=== PATIENT | male | born 1935 | race Caucasian/White ===

== ENCOUNTER 2018-02-10 09:50 | Observation (INO) | payer OTHER ==
[2018-02-10] MEDS ORDERED: NS 500 ML IV ONE (09:58)
[2018-02-10] MEDS ORDERED: ASPIRIN 81 MG CHEWABLE TAB PO ONE (09:58)
--- NOTE | 2018-02-10 10:06 | CPEKG ---
Heart Rate: 57 RR Interval: 1053 P-R Interval: 204 QRSD Interval: 82 QT Interval: 424 QTC Interval: 413 P [place]: 76 QRS [place]: -47 T Wave [place]: 87 EKG Severity - ABNORMAL ECG - EKG Impression: SINUS RHYTHM EKG Impression: LEFT ANTERIOR FASCICULAR BLOCK EKG Impression: BORDERLINE T ABNORMALITIES, ANT-LAT LEADS Electronically Signed By: Therese Emanuel 10-Feb-2018 14:52:47
[2018-02-10 10:23] LABS: PLATELET COUNT 225 10^3/uL (150-400)
[2018-02-10 10:32] LABS: CREATINE KINASE 32 IU/L (0-224)
[2018-02-10 10:34] LABS: INR 1.04 (0.83-1.16); PROTIME(PATIENT) 13.8 SEC (12.0-15.0)
--- NOTE | 2018-02-10 10:44 | EDPHY ---
H & P Time Seen by Provider: 02/10/18 09:59 HPI/ROS: HPI Chest pain. 82-year-old male by ambulance from home. This patient reports that he woke up at 7:00 a.m. With what he describes as lower mid substernal chest pain with radiation to the right side of his chest. He reports that it worsened through the morning. He does have a history of pericarditis but states that this pain was different from his previous episodes of pericarditis. He describes the pain as dull and aching and constant. No associated shortness of breath. At this time he states that his chest pain has resolved and he denies any discomfort. Denies any previous history of coronary artery disease. ROS: Constitutional: No fever, no chills. No weakness. Eyes: No discharge. No changes in vision. ENT: No sore throat. No nasal congestion or rhinorrhea. Respiratory: No cough. No shortness of breath. Cardiac: As above, no palpitations. Gastrointestinal: No abdominal pain, no vomiting, no diarrhea. Genitourinary: No hematuria. No dysuria or increased frequency with urination. Musculoskeletal: No back pain. No neck pain. No myalgias or arthralgias. Skin: No rashes. Neurological: No headache. No focal weakness or altered sensation. Past medical history: Recent fracture of right shoulder and proximal humerus currently in a sling for this. Pericarditis, amnesia, hypothyroidism, prostatic hypertrophy. Social history: Nonsmoker. Here by himself. Denies alcohol. Physical Exam: General Appearance: Alert, no distress. This patient is responding to questions appropriately and in full sentences. This patient appears well- hydrated and well-nourished. Eyes: Pupils equal and round no pallor or injection. No lid edema, erythema or injection. Respiratory: There are no retractions, lungs are clear to auscultation with good air movement bilaterally. Cardiovascular: Regular rate and rhythm. No murmur. Gastrointestinal: Abdomen is soft and nontender, no masses, bowel sounds normal. No focal tenderness at McBurney's point. No Mendoza sign. Neurological: Motor sensory function is grossly intact. Cranial nerves are normal. Gait is normal. Skin: Warm and dry, no rashes. Musculoskeletal: Neck is supple and nontender. Extremities are symmetrical except noted right upper extremity in sling and swath. All joints range without pain or impingement except right shoulder.. Psychiatric: No agitation. No depression. Database: EKG: EKG time is 9:50 a.m.; EKG shows a narrow complex normal sinus rhythm with a ventricular rate of 57. Left anterior fascicular block noted. The VT, QRS, QT intervals are within normal limits. T-wave flattening noted in the anterior precordial leads. Otherwise, there are no ST-T wave changes indicative of ischemic or injury pattern. No evidence of right heart strain. Interpreted by me. Imaging: Chest x-ray AP portable; the cardiac mediastinal silhouette is unremarkable. No evidence of infiltrate or pneumothorax. Chronic airway disease, chronic granulomatous disease. No acute cardiopulmonary disease process noted. Interpreted by me. Procedures: Emergency department course: IV placed. Patient placed on a monitor. Vital signs reviewed and are unremarkable. Patient given 324 mg of chewed aspirin. 10:45 a.m., the patient remains chest pain-free. Results of diagnostic workup and plan for admission to the hospitalist service discussed. He endorses. 10:50 a.m., spoke with hospitalist. Case discussed in detail. Patient accepted for admission to telemetry observation. Patient admitted in stable condition to the hospitalist service. Differential Diagnosis: The differential diagnosis on this patient includes but is not limited to acute coronary syndrome, myocardial infarction, esophageal spasm. Pericarditis, myocarditis, pulmonary embolism, aortic dissection unlikely. This represents a partial list of diagnoses considered. These considerations are based on history , physical exam, past history, reassessment and diagnostic testing. Smoking Status: Former smoker Constitutional: Initial Vital Signs Temperature (C) 36.5 C 02/10/18 10:03 Heart Rate 61 02/10/18 10:03 Respiratory Rate 18 02/10/18 10:03 Blood Pressure 133/71 H 02/10/18 10:03 O2 Sat (%) 94 02/10/18 10:03 O2 Delivery Mode Room Air O2 (L/minute) 2 Allergies/Adverse Reactions: amoxicillin trihydrate [From Augmentin] Allergy (Mild, Verified 06/18/11 10:01) GI upset ciprofloxacin HCl [From Cipro] Allergy (Mild, Verified 06/18/11 10:01) achiness potassium clavula *RETIRED-06/23/12 [From Augmentin] Allergy (Mild, Verified 02/21 10:01) GI upset Home Medications: Medication Instructions Recorded Tamsulosin HCl [Flomax] 0.4 mg PO DAILY 06/18/11 Synthroid 05/18/15 Medical Decision Making - Diagnostics Imaging Results: Imaging Impressions Chest X-Ray 02/10/18 09:59 Impression: 1. No acute pulmonary disease. 2. Chronic obstructive airways disease. 3. Chronic granulomatous nodules. - Data Points Laboratory Results: Laboratory Results 02/10/18 10:15 02/10/18 10:15 02/10/18 02/10/18 02/10/18 10:15 10:15 10:15 WBC 6.15 10^3/uL 10^3/uL (3.80-9.50) RBC 4.71 10^6/uL 10^6/uL (4.40-6.38) Hgb 14.2 g/dL g/dL (13.7-17.5) Hct 42.4 % % (40.0-51.0) MCV 90.0 fL fL (81.5-99.8) MCH 30.1 pg pg (27.9-34.1) MCHC 33.5 g/dL g/dL (32.4-36.7) RDW 14.2 % % (11.5-15.2) Plt Count 225 10^3/uL 10^3/uL (150-400) MPV 8.9 fL fL (8.7-11.7) Neut % (Auto) 68.5 % % (39.3-74.2) Lymph % (Auto) 12.7 % L % (15.0-45.0) Meagher % (Auto) 7.6 % % (4.5-13.0) Eos % (Auto) 10.4 % H % (0.6-7.6) Baso % (Auto) 0.5 % % (0.3-1.7) Nucleat RBC Rel Count 0.0 % % (0.0-0.2) Absolute Neuts (auto) 4.21 10^3/uL 10^3/uL (1.70-6.50) Absolute Lymphs (auto) 0.78 10^3/uL L 10^3/uL (1.00-3.00) Absolute Monos (auto) 0.47 10^3/uL 10^3/uL (0.30-0.80) Absolute Eos (auto) 0.64 10^3/uL H 10^3/uL (0.03-0.40) Absolute Basos (auto) 0.03 10^3/uL 10^3/uL (0.02-0.10) Absolute Nucleated RBC 0.00 10^3/uL 10^3/uL (0-0.01) Immature Gran % 0.3 % % (0.0-1.1) Immature Gran # 0.02 10^3/uL 10^3/uL (0.00-0.10) PT 13.8 SEC SEC (12.0-15.0) INR 1.04 (0.83-1.16) APTT 26.4 SEC SEC (23.0-38.0) Sodium 139 mEq/L mEq/L (135-145) Potassium Pending Chloride 107 mEq/L mEq/L (97-110) Carbon Dioxide 24 mEq/l mEq/l (22-31) Anion Gap Pending BUN 24 mg/dL H mg/dL (7-23) Creatinine 1.2 mg/dL mg/dL (0.7-1.3) Estimated GFR 58 Glucose 99 mg/dL mg/dL (70-100) Calcium 8.3 mg/dL L mg/dL (8.5-10.4) Creatine Kinase 32 IU/L IU/L (0-224) CK-MB (CK-2) Fraction 1.30 ng/mL ng/mL (0.00-3.19) Troponin I < 0.012 ng/mL ng/mL (0.000-0.034) Medications Given: Discontinued Medications Aspirin (Aspirin) 324 mg PO EDNOW ONE Stop: 02/10/18 09:59 Last Admin: 02/10/18 10:03 Dose: Not Given Sodium Chloride (Ns) 500 mls @ 1,000 mls/hr IV EDNOW ONE PRN Reason: Protocol Stop: 02/10/18 10:27 Last Admin: 02/10/18 10:11 Dose: 500 mls Departure - Departure Disposition: [facility] In[facility] Acute Clinical Impression: Chest pain Referrals: BLAIR MEJÍA [Primary Care Provider] - As per Instructions
[2018-02-10] MEDS ORDERED: ONDANSETRON 4 MG/2 ML VIAL IVP PRN (10:59)
[2018-02-10] MEDS ORDERED: ACETAMINOPHEN 325 MG TAB PO PRN (10:59)
[2018-02-10] MEDS ORDERED: ONDANSETRON DISINTEGRATING 4 MG TAB PO PRN (10:59)
--- NOTE | 2018-02-10 15:57 | GHP ---
[f rep st] HISTORY AND PHYSICAL DATE OF ADMISSION: 02/10/2018 CHIEF COMPLAINT: Substernal chest pressure. HISTORY OF PRESENT ILLNESS: An 82-year-old male who reports awaking the morning of presentation seco ndary to substernal chest pressure. Patient reports being in his normal state of health the evening prior to presentation, tolerating normal p.o. and falling asleep without complication. Patient repor ts being woken by substernal chest pressure that he described 8/10 at initiation. Patient sat up, wa s trying better to get himself comfortable with the pain when he noted the pain began radiating to th e right side of his chest. He denied any associated diaphoresis, any lightheadedness, any nausea or vomiting. He did feel short of breath with the pain. Patient called the EMS, was given baby aspirin in the field, and did have resolution of the pain while in transit to [facility]. Nilam martin denies any preceding episodes of chest pain similar to this. He has had 2 episodes of pericar ditis in the past that he describes as feeling different than this sensation he had this morning. Luis mcconnell is quite active. At times, will hike up to 6 miles a day without any difficulty either with sh ortness of breath or chest discomfort. Patient did recently fall breaking both his humerus and his l ower arm. He is status post casting and is now splinted. Does not report any new increase in activi ty to the right upper extremity in the past several days. PAST MEDICAL HISTORY: 1. BPH. 2. Hypothyroidism. 3. Rheumatoid arthritis. SOCIAL HISTORY: Patient smoked for a short period of time, quit over 20 years ago. Alcohol occasion al. No illicit drugs or marijuana. FAMILY HISTORY: Negative for heart disease. REVIEW OF SYSTEMS: A 10-point review of systems is negative with the exception of that reported in t he HPI. PHYSICAL EXAMINATION: VITAL SIGNS: Blood pressure 132/77, heart rate 61, respiratory rate 18, 93% o n room air, 36.4. GENERAL: This is a very healthy-appearing elderly male in no acute distress. CRIS NT: Notable for moist mucous membranes. Eye exam is negative for any icterus. CARDIAC: Patient is regular rate and rhythm. A quiet systolic murmur is appreciated at the left upper sternal border. PULMONARY: He is clear to auscultation bilaterally. GASTROINTESTINAL: Positive bowel sounds. Abdom en soft and nontender. MUSCULOSKELETAL: Negative for any lower extremity edema. SKIN: Negative for any rashes. NEUROLOGIC: He is alert and oriented x3. PSYCHIATRIC: He is pleasant and cooperative o n interview and examination. DATA: White count 6.1, hematocrit 42.4, platelets of 225. Creatinine 1.2, BUN 24. Troponin less th an 0.012. Chest x-ray, which I personally reviewed and interpreted, shows no acute infiltrates or edema. EKG, which I personally reviewed and interpreted, shows sinus rhythm, leftward axis deviation, normal intervals with no acute ST-T changes. ASSESSMENT AND PLAN: This is an 82-year-old male presenting with sudden onset chest pressure. 1. Acute chest pain. Patient is quite active with no significant risk factors for heart disease. R eassured by his description of the pain, as well as his first objective data. Will admit the patient for serial troponin and EKG, as well as telemetry monitoring on the progressive care unit. If patie nt rules out overnight, would preferentially like to perform a graded treadmill stress test. Will ne ed to investigate whether he can do so with his right arm in a sling. 2. Hypothyroidism. Will continue patient's Synthroid therapy per his home dosing. 3. BPH. Will continue his outpatient tamsulosin. 4. Prophylaxis with Lovenox. 5. Diet regular. 6. Disposition. I expect in less than 2 midnights that the patient's cardiac stress testing effecti vely rules him out for ischemic disease. I have discussed the case with the emergency room physician . Patient will be triaged to the progressive care unit for care. /[id number]/MODL
[2018-02-10] MEDS: lamoTRIgine 100 MG TAB PO SCH (20:36)
[2018-02-10] MEDS ORDERED: GABAPENTIN 100 MG CAP PO SCH (21:00)
[2018-02-11] MEDS ORDERED: LEVOTHYROXINE 75 MCG TAB PO SCH (06:00)
[2018-02-11] MEDS ORDERED: TAMSULOSIN HCL 0.4 MG CAP PO SCH (09:00)
[2018-02-11] MEDS ORDERED: ENOXAPARIN 40 MG/0.4 ML SYR SC SCH (09:00)
[2018-02-11] MEDS ORDERED: FOLIC ACID 1 MG TAB PO SCH (09:00)
[2018-02-11] MEDS: lamoTRIgine 100 MG TAB PO SCH (09:10)
[2018-02-11] MEDS ORDERED: REGADENOSON 0.4 MG/5 ML SYR IVP ONE (09:53)
--- NOTE | 2018-02-11 12:33 | ASMTCMCOM ---
CM Note CM Note Notes: 02/11/2018 Case Management Note Met pt during multi disciplinary rounds. {t was admitted for chest pain and is undergoing routine testing. Pt lives independently in his own home. Pt is an avid hiker. There are no case management d/c needs. Case Management d/c poc: independent with follow up as directed Case Management available if needs change. Date Signed: 02/11/2018 12:32 PM Electronically Signed By:Tabatha Borden RN
--- NOTE | 2018-02-11 14:26 | PDCARST ---
CAR Stress Test Results Type of Stress Test: Lexiscan stress test Indication: cp Description of Procedure: After informed consent was obtained, pt was established to ECG, blood pressure, HR and oximetry monitoring. STRESS EKG AND HEMODYNAMIC DATA. Resting heart rate: 54 BPM. Resting ECG: SR with low voltage. Resting blood pressure: mmHg. O2 saturation at rest: Peak heart rate: BPM. Peak blood pressure: 136/80 mmHg. Arrhythmias: none. Symptoms : The patient experienced no typical symptoms of angina during stress or recovery. Stress/Infusion ECG: No change in rhythm with no significant ST/T wave changes. Stress/infusion O2 saturation: 94% Impression: Uneventful Lexiscan Conclusion: Await nuclear imaging.
[2018-02-11 15:55] VITALS: BP 117/63
--- NOTE | 2018-02-11 19:13 | GDS ---
[f rep st] DISCHARGE SUMMARY DISCHARGE DIAGNOSES: 1. Chest pain thought noncardiac. 2. Rheumatoid arthritis. 3. BPH. HISTORY OF PRESENT ILLNESS: An 82-year-old male who presents with an episode of chest pain. For det ails of the patient's initial presentation, please see the history and physical dated 02/10/2018. CONSULTATIVE SERVICES: Cardiology. PROCEDURES: A cardiac nuclear stress test. HOSPITAL COURSE: Chest pain. Patient had an isolated atypical episode of chest pain which spontaneo usly resolved without recurrence. Initial objective data including EKG and troponins were negative. The patient would have been taken for treadmill stress testing; however, had a broken arm that was i n a sling at the time of his evaluation. Taken for nuclear stress imaging that showed inferior abnorm alities most consistent likely with artifact after review by Cardiology. The patient is being discha rged with a recommended baby aspirin a day. He is to follow in the outpatient setting with [facility]ology and/or his PCP for long-term management of his ongoing symptoms if they recur. MEDICATIONS: At the time of disposition: Please reference medication reconciliation printed on 10/2017. FOLLOWUP APPOINTMENTS: [place] PCP in the next 2-4 weeks for post disposition followup. PENDING STUDIES: At the time of this dictation are none. TIME SPENT: I spent greater than 30 minutes in the planning and coordination of this discharge. /[id number]/MODL
== END 2018-02-11 19:28 | disposition home or self-care (01) ==
LOC: EDUNIT# → F2W 12:40
PROVIDERS: ADMIT Hospitalist; ATTEND Hospitalist
DX: R07.9 Chest pain, unspecified (principal); E86.9 Volume depletion, unspecified; I44.4 Left anterior fascicular block; M06.9 Rheumatoid arthritis, unspecified; N40.0 Benign prostatic hyperplasia without lower urinary tract symptoms; E03.9 Hypothyroidism, unspecified; Z87.891 Personal history of nicotine dependence; Z88.0 Allergy status to penicillin
CPT/HCPCS: 71045; 78452; 93005; 93017; A9500; G0378; J1650; J2785